=== PATIENT | female | born 1930 | race Caucasian/White ===

== ENCOUNTER → 2016-08-08 | Outpatient (CLI) | payer OTHER, BC ==
[~2016-08-08] MED LIST: ABILIFY2 MG PO; ADULT LOW DOSE81 M1 PO; ALPHA-LIPOIC A300 MG PO; ALTACE1.25 MG PO; ALTACE10 MG PO; ALTACE2.5 MG PO; AMOXICILLIN500 M1 PO; ASPIR-TRIN325 M1 PO; ASPIRIN EC325 MG PO; Ascorbic Acid,Ester- PO; CALCIUM + VIT1 EACH PO; CARDIZEM CD,CA120 MG PO; CARDIZEM CD360 MG PO; CARDIZEM30 MG PO; CARTIA XT120 MG PO; CEFUROXIME500 MG PO; CELEBREX200 MG PO; CELEXA20 MG PO; CENTRUM SILV1 TABLET PO; CENTRUM SILVER1 EAC3 PO; CINNAMON500 MG PO; CITRACAL + D C1 EACH PO; CITRACAL W/V1 TABLET PO; COLON HEALTH PO; CRESTOR5 MG PO; Cardizem CD,Cartia X PO; Centrum Silver,Certa PO; Citracal W/Vitamin D PO; DIAZEPAM5 MG PO; Ditropan PO; Dulcolax PO; Ecotrin PO; FEOSOL325 MG PO; FIBER GUMMIES2.5 GM PO; FIBER THERAPY0.52 GM PO; FLECTOR 1.3%1 PATC1 TD; FOLIC ACID0.8 MG PO; Folic Acid PO; Folvite PO; GLIPIZIDE5 MG; GLIPIZIDE5 MG PO; GLUCOPHAGE1000 MG PO; GLUCOPHAGE500 MG PO; GLUCOTROL10 MG PO; Glucophage PO; Glucotrol PO; HYDROCODON-ACE1 EAC7 PO; IBUPROFEN200 M1 PO; IRON325 M1 PO; JANUVIA100 MG; JANUVIA100 MG PO; Januvia PO; KLONOPIN0.25 MG PO; KLONOPIN0.5 M1 PO; KRILL OIL 3001 EACH PO; KlonoPIN PO; LO-DOSE ASPIRIN81 M1 PO; LOPRESSOR50 MG PO; LORCET 5-325 M1 EACH PO; LYRICA75 MG PO; Lopressor PO; MAALOX1 ML PO; MEGA BIOTIN10000 MCG PO; METFORMIN HCL500 MG PO; METOPROLOL SUCC25 MG PO; MIRALAX, GLYCOL1 PK1 PO; MOBIC15 MG PO; Maalox, Mylanta PO; Macrobid PO; Milk Of Magnesia,MOM PO; OXAYDO5 MG PO; OXYBUTYNIN CHLO10 MG PO; Oscal 500 w/Vitamin PO; Oyst-Cal D, Oscal W/ PO; PRAVACHOL40 MG PO; PRESERVISION T1 EACH PO; PREVACID30 MG PO; PREVAGEN PO; PROBIOTIC1 EAC1 PO; Prevacid PO; RAMIPRIL1.25 MG PO; RANITIDINE HCL300 M1 PO; ROBAXIN500 MG PO; SENOKOT S,PE1 TABLET PO; SYMMETREL100 M2 PO; Senokot S,Pericolace PO; TOVIAZ4 MG PO; TRAMADOL HCL50 MG PO; TYLENOL REGULA325 MG PO; Theragran PO; Tylenol Regular Stre PO; ULTRAM50 MG PO; VESICARE5 MG PO; VICODIN,LORT1 TABLET PO; VITAMIN D-32000 UNIT PO; VITAMIN D2000 INTUN PO; VITAMIN E400 UNIT PO; Vicodin,Lortab 5/500 PO; Vicodin,Norco 5/325 PO; celeBREX PO; celeXA PO
== END | disposition home or self-care (01) ==
DX: R13.10 Dysphagia, unspecified (principal)
CPT/HCPCS: 92611 GN; G8996 GN; G8997 GN; G8998 GN

== ENCOUNTER 2016-11-27 07:17 | Emergency (ER) | payer OTHER, BC ==
[~2016-11-27] VITALS: Ht 162.6 cm; Wt 81.4 kg
[2016-11-27 08:36] LABS: HEMATOCRIT 35.5 % (36.0-46.0); MCH 27.8 PG (29.0-34.0); MCHC 34.1 G/DL (30.0-36.0); MCV 81.6 FL (83-99); MEAN PLAT.VOLUME 8.7 uM^3 (9.5-12.4); PLATELET COUNT 277 K/uL (156-360); RBC DIS.WIDTH-CV 14.3 % (11.8-14.6); RBC DIS.WIDTH-SD 41.9 % (39-53); RED BLOOD COUNT 4.35 M/uL (3.80-5.20); WHITE BLOOD COUNT 7.3 K/uL (4.1-10.2)
[2016-11-27 08:46] LABS: CHLORIDE 93 mEq/L (99-109); POTASSIUM 4.2 mEq/L (3.7-5.4); SODIUM 128 mEq/L (136-147)
[2016-11-27 08:48] LABS: GLUCOSE 158 mg/dL (70-99)
[2016-11-27 08:49] LABS: ANION GAP 9 MEQ/L (2-14)
[2016-11-27 08:52] LABS: GFR ESTIMATE (CALCULATED) > 59 mL/min/
[2016-11-27 08:53] LABS: UREA NITROGEN (BUN) 13 mg/dL (9-23)
[2016-11-27 08:58] LABS: TROP-I INTERPRETATION NEGATIVE; TROPONIN-I < 0.01 ng/mL (0.0-0.30)
[2016-11-27 09:36] LABS: ADD MIUA? YES; BILIRUBIN NEGATIVE; BLOOD NEGATIVE; COLOR YELLOW ((YELLOW)); GLUCOSE (STRIP) NEGATIVE; KETONES NEGATIVE; LEUKOCYTES TRACE; NITRITE NEGATIVE; PROTEIN (STRIP) NEGATIVE; SPECIFIC GRAVITY 1.008 (1.000-1.030); UROBILINOGEN 0.2 MG/DL (0.2-1.0)
[2016-11-27 09:44] LABS: BACTERIA NONE SEEN /HPF; CALCIUM OXALATE CRYSTALS 1+ /HPF; EPITHELIAL CELLS RARE /HPF; MUCUS NONE SEEN /LPF; RED BLOOD CELLS 0-5 /HPF (0-5)
[2016-11-27 10:24] VITALS: BP 109/87
[2016-11-28] MEDS ORDERED: CITALOPRAM HBR20 MG PO (15:19)
[2016-11-28] MEDS ORDERED: GLUCOTROL10 MG PO (15:20)
[2016-11-28] MEDS ORDERED: ARMODAFINIL250 MG PO (15:20)
[2016-11-28] MEDS ORDERED: CENTRUM SILVER1 EAC3 PO (15:22)
[2016-11-28] MEDS ORDERED: PERCOCET 10/1 TABLET PO (15:24)
[2016-11-28] MEDS ORDERED: SYMBICORT60 INHALA1 IH (15:27)
== END 2016-11-27 10:26 | disposition home or self-care (01) ==
LOC: EME 07:17
PROVIDERS: Nurse Practitioner Family
DX: S51.811A Laceration without foreign body of right forearm, initial encounter (principal); W18.30XA Fall on same level, unspecified, initial encounter; Y92.009 Unspecified place in unspecified non-institutional (private) residence as the place of occurrence of the external cause; R29.6 Repeated falls; E11.9 Type 2 diabetes mellitus without complications; Z79.84 Long term (current) use of oral hypoglycemic drugs; I10 Essential (primary) hypertension
CPT/HCPCS: 70450; 71020; 80048; 81003; 84484; 85027; 93005; 99281; 99284; J7030

== ENCOUNTER 2016-11-28 11:24 | Observation (INO) | payer OTHER, BC ==
[~2016-11-28] VITALS: Ht 162.6 cm; Wt 81.3 kg
[2016-11-28 12:18] LABS: EOSINOPHIL (%) 1.1 % (0-5); EOSINOPHIL COUNT 0.1 K/uL (0-0.3); HEMATOCRIT 37.9 % (36.0-46.0); IMMATURE GRANULOCYTE (%) 0.6 % (0.0-0.7); INSTRUMENT ABS NEUTROPHIL CT 4.9 K/uL; LYMPHOCYTE COUNT 1.4 K/uL (1.0-2.8); MCH 27.5 PG (29.0-34.0); MCV 83.5 FL (83-99); MEAN PLAT.VOLUME 9.1 uM^3 (9.5-12.4); MONOCYTE COUNT 0.6 K/uL (0-0.8); NEUTROPHIL (%) 69.5 % (45-76); NEUTROPHIL COUNT 4.9 K/uL (1.8-6.4); PLATELET COUNT 317 K/uL (156-360); RBC DIS.WIDTH-SD 45.3 % (39-53); RED BLOOD COUNT 4.54 M/uL (3.80-5.20); WHITE BLOOD COUNT 7.1 K/uL (4.1-10.2)
[2016-11-28 12:35] LABS: CHLORIDE 100 mEq/L (99-109); POTASSIUM 4.6 mEq/L (3.7-5.4)
[2016-11-28 12:37] LABS: GLUCOSE 145 mg/dL (70-99)
[2016-11-28 12:38] LABS: ANION GAP 11 MEQ/L (2-14)
[2016-11-28 12:39] LABS: SODIUM 136 mEq/L (136-147); TOTAL BILIRUBIN 0.2 mg/dL (0.0-1.0)
[2016-11-28 12:40] LABS: ALKALINE PHOSPHATASE 74 IU/L (3-129)
[2016-11-28 12:41] LABS: GFR ESTIMATE (CALCULATED) > 59 mL/min/
[2016-11-28 12:42] LABS: UREA NITROGEN (BUN) 10 mg/dL (9-23)
[2016-11-28 12:44] LABS: TROP-I INTERPRETATION NEGATIVE; TROPONIN-I < 0.01 ng/mL (0.0-0.30)
[2016-11-28 13:15] LABS: D-DIMER ELISA 0.98 mg/L FEU (< 0.57)
[2016-11-28 14:53] LABS: ADD MIUA? NO; BILIRUBIN NEGATIVE; BLOOD NEGATIVE; COLOR YELLOW ((YELLOW)); GLUCOSE (STRIP) NEGATIVE; KETONES NEGATIVE; LEUKOCYTES NEGATIVE; NITRITE NEGATIVE; PROTEIN (STRIP) NEGATIVE; SPECIFIC GRAVITY 1.014 (1.000-1.030); UCUL ADDED? NO; UROBILINOGEN 0.2 MG/DL (0.2-1.0)
[2016-11-28] MEDS ORDERED: CITALOPRAM HBR20 MG PO (15:19)
[2016-11-28] MEDS ORDERED: GLUCOTROL10 MG PO (15:20)
[2016-11-28] MEDS ORDERED: ARMODAFINIL250 MG PO (15:20)
[2016-11-28] MEDS ORDERED: CENTRUM SILVER1 EAC3 PO (15:22)
[2016-11-28] MEDS ORDERED: PERCOCET 10/1 TABLET PO (15:24)
[2016-11-28] MEDS ORDERED: SYMBICORT60 INHALA1 IH (15:27)
[2016-11-28 17:33] VITALS: BP 177/78
[2016-11-28 19:30] VITALS: BP 161/75
[2016-11-28 19:41] LABS: TROP-I INTERPRETATION NEGATIVE; TROPONIN-I < 0.01 ng/mL (0.0-0.30)
[2016-11-28 23:49] VITALS: BP 143/82
[2016-11-29 01:13] LABS: TROP-I INTERPRETATION NEGATIVE; TROPONIN-I < 0.01 ng/mL (0.0-0.30)
[2016-11-29 04:19] VITALS: BP 156/67
[2016-11-29 06:23] LABS: ANION GAP 9 MEQ/L (2-14); CHLORIDE 103 MEQ/L (99-109); GFR ESTIMATE (CALCULATED) > 59 mL/min/; POTASSIUM 4.1 MEQ/L (3.7-5.4); SAMPLE HEMOLYSIS CHECK 0; SAMPLE ICTERIC CHECK 0; SAMPLE LIPEMIA CHECK 0; SODIUM 137 MEQ/L (136-147); UREA NITROGEN (BUN) 7 mg/dL (9-23)
[2016-11-29 06:31] LABS: GLUCOSE 105 mg/dL (70-99)
[2016-11-29 06:46] LABS: POINT-OF-CARE METER ID UU14162513; POINT-OF-CARE USER ID 609231305
[2016-11-29 08:00] VITALS: BP 159/84
[2016-11-29 11:05] VITALS: BP 132/73
== END 2016-11-29 14:37 | disposition home or self-care (01) ==
LOC: EME → EDBD 11:24 → EME 11:24 → EDOF 16:31 → 5WEST 16:31 → EDOF 16:31 → 5WEST 17:22
PROVIDERS: Emergency Medicine; Hospitalist; Internal Medicine
DX: R07.9 Chest pain, unspecified (principal); Z91.81 History of falling; R26.9 Unspecified abnormalities of gait and mobility; E11.9 Type 2 diabetes mellitus without complications; K21.9 Gastro-esophageal reflux disease without esophagitis; I10 Essential (primary) hypertension; E78.5 Hyperlipidemia, unspecified; R32 Unspecified urinary incontinence; F41.9 Anxiety disorder, unspecified; G47.30 Sleep apnea, unspecified; I45.10 Unspecified right bundle-branch block; Z96.611 Presence of right artificial shoulder joint; Z96.612 Presence of left artificial shoulder joint; Z96.653 Presence of artificial knee joint, bilateral; Z82.49 Family history of ischemic heart disease and other diseases of the circulatory system; Z83.3 Family history of diabetes mellitus; Z88.5 Allergy status to narcotic agent
CPT/HCPCS: 71020; 71275; 80048; 80053; 81003; 82948; 84484; 85025; 85379; 93005; 94640; 99202; 99281; 99283; G0378; G8978 GP CH; G8979 GP CH; G8980 GP CH; G8987 GO CH; G8988 GO CH; G8989 GO CH; J1650; J7030; J7040

== ENCOUNTER → 2017-06-12 | Outpatient (CLI) | payer OTHER, BC ==
[~2017-06-12] MED LIST changes: +ARMODAFINIL250 MG PO; +CITALOPRAM HBR20 MG PO; +PERCOCET 10/1 TABLET PO; +SYMBICORT60 INHALA1 IH
== END | disposition home or self-care (01) ==
DX: R13.13 Dysphagia, pharyngeal phase (principal); Z87.01 Personal history of pneumonia (recurrent); Z87.19 Personal history of other diseases of the digestive system
CPT/HCPCS: 92611 GN; G8996 GN CJ; G8997 GN CJ; G8998 GN CJ

== ENCOUNTER 2017-08-01 17:40 | Inpatient (IN) | payer OTHER, BC ==
[~2017-08-01] VITALS: Ht 162.6 cm; Wt 83.0 kg
[~2017-08-01 17:40] MED LIST changes: +METFORMIN HCL1000 MG PO; -METFORMIN HCL500 MG PO
[2017-08-01 18:29] LABS: HEMATOCRIT 33.2 % (36.0-46.0); HEMOGLOBIN 10.6 G/DL (11.9-15.5); MCH 25.8 PG (29.0-34.0); MCHC 31.9 G/DL (30.0-36.0); MCV 80.8 FL (83-99); PLATELET COUNT 300 K/uL (156-360); RBC DIS.WIDTH-CV 14.7 % (11.8-14.6); RBC DIS.WIDTH-SD 43.3 % (39-53); RED BLOOD COUNT 4.11 M/uL (3.80-5.20); WHITE BLOOD COUNT 7.9 K/uL (4.1-10.2)
[2017-08-01 18:38] LABS: CHLORIDE 104 mEq/L (99-109); POTASSIUM 4.2 mEq/L (3.7-5.4); SODIUM 140 mEq/L (136-147)
[2017-08-01 18:39] LABS: GLUCOSE 70 mg/dL (70-99)
[2017-08-01 18:43] LABS: CREATININE 0.9 mg/dL (0.6-1.3); GFR ESTIMATE (CALCULATED) > 59 mL/min/
[2017-08-01 18:44] LABS: UREA NITROGEN (BUN) 26 mg/dL (9-23)
[2017-08-01] MEDS ORDERED: IMODIUM A-D2 M2 PO (21:33)
[2017-08-01] MEDS ORDERED: PROTONIX40 MG PO (21:33)
[2017-08-01] MEDS ORDERED: ARICEPT10 MG PO (21:33)
[2017-08-01] MEDS ORDERED: AMOXICILLIN500 MG PO (21:33)
[2017-08-01] MEDS ORDERED: CLONAZEPAM1 MG PO (21:34)
[2017-08-01] MEDS ORDERED: VITAMIN D31000 UNIT PO (21:34)
[2017-08-01 23:12] VITALS: BP 143/66
[2017-08-02 03:37] VITALS: BP 134/63
[2017-08-02 06:07] LABS: HEMATOCRIT 31.5 % (36.0-46.0); MCH 25.4 PG (29.0-34.0); MCHC 31.7 G/DL (30.0-36.0); MCV 80.2 FL (83-99); PLATELET COUNT 292 K/uL (156-360); RBC DIS.WIDTH-CV 14.9 % (11.8-14.6); RBC DIS.WIDTH-SD 43.4 % (39-53); RED BLOOD COUNT 3.93 M/uL (3.80-5.20); WHITE BLOOD COUNT 6.4 K/uL (4.1-10.2)
[2017-08-02 06:29] LABS: HDL CHOLESTEROL 38 MG/DL (Desirable>=50); LDL CHOLESTEROL 66 mg/dL (Desirable<100); NON-HDL CHOLESTEROL 101 mg/dL (Desirable<160); TOTAL CHOLESTEROL 139 mg/dL (Desirable<200); TRIGLYCERIDES 175 MG/DL (Normal: <150)
[2017-08-02 06:55] LABS: APPEARANCE SL.HAZY ((CLEAR)); BILIRUBIN NEGATIVE; BLOOD NEGATIVE; COLOR YELLOW ((YELLOW)); GLUCOSE (STRIP) NEGATIVE; KETONES NEGATIVE; LEUKOCYTES LARGE; NITRITE NEGATIVE; PROTEIN (STRIP) NEGATIVE; UROBILINOGEN 0.2 MG/DL (0.2-1.0)
[2017-08-02 07:22] LABS: BACTERIA 2+ /HPF; EPITHELIAL CELLS RARE /HPF; MUCUS TRACE /LPF; RED BLOOD CELLS 0-5 /HPF (0-5); UCUL ADDED? YES; WHITE BLOOD CELLS TNTC /HPF (0-5)
[2017-08-02 07:30] VITALS: BP 177/79
[2017-08-02 08:39] LABS: FOLIC ACID (FOLATE) > 22.0 NG/ML (5.0-22.0)
[2017-08-02 11:33] VITALS: BP 176/75
[2017-08-02 15:35] VITALS: BP 137/69
[2017-08-02 19:39] VITALS: BP 156/70
[2017-08-03 00:56] VITALS: BP 144/75
[2017-08-03 05:33] LABS: BASOPHIL (%) 0.7 % (0-1); BASOPHIL COUNT 0.1 K/uL (0-0.1); EOSINOPHIL (%) 3.5 % (0-5); EOSINOPHIL COUNT 0.3 K/uL (0-0.3); HEMATOCRIT 33.8 % (36.0-46.0); HEMOGLOBIN 10.7 G/DL (11.9-15.5); IMMATURE GRANULOCYTE (%) 0.4 % (0.0-0.7); LYMPHOCYTE (%) 24.2 % (15-42); MCH 25.3 PG (29.0-34.0); MCHC 31.7 G/DL (30.0-36.0); MCV 79.9 FL (83-99); MONOCYTE (%) 9.8 % (3-12); MONOCYTE COUNT 0.8 K/uL (0-0.8); NEUTROPHIL (%) 61.4 % (45-76); NEUTROPHIL COUNT 5.1 K/uL (1.8-6.4); PLATELET COUNT 311 K/uL (156-360); RBC DIS.WIDTH-CV 14.7 % (11.8-14.6); RBC DIS.WIDTH-SD 42.7 % (39-53); RED BLOOD COUNT 4.23 M/uL (3.80-5.20); WHITE BLOOD COUNT 8.4 K/uL (4.1-10.2)
[2017-08-03 06:00] LABS: CHLORIDE 105 MEQ/L (99-109); CREATININE 0.8 MG/DL (0.6-1.3); GFR ESTIMATE (CALCULATED) > 59 mL/min/; GLUCOSE 192 mg/dL (70-99); POTASSIUM 3.8 MEQ/L (3.7-5.4); SODIUM 142 MEQ/L (136-147); UREA NITROGEN (BUN) 14 mg/dL (9-23)
[2017-08-03 07:24] VITALS: BP 146/78
[2017-08-03 12:26] VITALS: BP 148/73
[2017-08-03 23:27] VITALS: BP 147/74
[2017-08-04 07:45] VITALS: BP 135/74
[2017-08-04 12:01] VITALS: BP 120/60
[2017-08-04 15:25] VITALS: BP 136/83
[2017-08-04 20:00] VITALS: BP 135/63
[2017-08-05 00:26] VITALS: BP 147/66
[2017-08-05 12:41] VITALS: BP 131/75
[2017-08-05] MEDS ORDERED: TYLENOL REGULA325 MG PO (15:29)
[2017-08-05] MEDS ORDERED: COLACE100 MG PO (15:30)
[2017-08-05] MEDS ORDERED: HEPARIN SO5000 UNIT3 SC (15:31)
[2017-08-05] MEDS ORDERED: NOVOLOG 10100 UNITS/ SC (15:45)
[2017-08-05] MEDS ORDERED: CELEXA20 MG PO (15:46)
[2017-08-05] MEDS ORDERED: APRESOLINE20 MG/ML IV (15:47)
== END 2017-08-05 14:00 | DRG 92 ==
LOC: EME 17:40 → EDOF 21:30 → ENRESERV 21:39 → 5WEST 23:04
PROVIDERS: Hospitalist; Internal Medicine
DX: R26.0 Ataxic gait (principal); R47.81 Slurred speech; H53.2 Diplopia; N39.0 Urinary tract infection, site not specified; D64.9 Anemia, unspecified; I10 Essential (primary) hypertension; E78.00 Pure hypercholesterolemia, unspecified; E78.5 Hyperlipidemia, unspecified; K21.9 Gastro-esophageal reflux disease without esophagitis; G43.909 Migraine, unspecified, not intractable, without status migrainosus; E11.9 Type 2 diabetes mellitus without complications; G47.33 Obstructive sleep apnea (adult) (pediatric); F41.9 Anxiety disorder, unspecified; Z96.611 Presence of right artificial shoulder joint; Z96.653 Presence of artificial knee joint, bilateral; Z96.612 Presence of left artificial shoulder joint; Z85.828 Personal history of other malignant neoplasm of skin; Z79.82 Long term (current) use of aspirin; Z91.81 History of falling
CPT/HCPCS: 70450; 70551; 71046; 80048; 80061; 81003; 82607; 82746; 82948; 83036; 84238 90; 84443; 85025; 85027; 87077; 87086; 87186; 93005; 93306; 93880; 95819; 97530 GO; 97530 GP; 99281; 99285; G0378; G8978 GP CJ; G8979 GP CI; J0696; J1644; J1815

== ENCOUNTER 2017-08-05 12:52 | Inpatient (IN) | payer OTHER, BC ==
[~2017-08-05] VITALS: Ht 154.9 cm; Wt 136.7 kg
[~2017-08-05 12:52] MED LIST changes: +AMOXICILLIN500 MG PO; +ARICEPT10 MG PO; +CLONAZEPAM1 MG PO; +IMODIUM A-D2 M2 PO; +PROTONIX40 MG PO; +VITAMIN D31000 UNIT PO
[2017-08-05 14:05] VITALS: BP 132/58
[2017-08-05] MEDS ORDERED: TYLENOL REGULA325 MG PO (15:29)
[2017-08-05] MEDS ORDERED: COLACE100 MG PO (15:30)
[2017-08-05] MEDS ORDERED: HEPARIN SO5000 UNIT3 SC (15:31)
[2017-08-05] MEDS ORDERED: NOVOLOG 10100 UNITS/ SC (15:45)
[2017-08-05] MEDS ORDERED: CELEXA20 MG PO (15:46)
[2017-08-05] MEDS ORDERED: APRESOLINE20 MG/ML IV (15:47)
[2017-08-05 16:06] VITALS: BP 127/70
[2017-08-06 00:34] VITALS: BP 142/65
[2017-08-06 06:08] VITALS: BP 158/70
[2017-08-06 08:05] LABS: HEMOGLOBIN 10.3 G/DL (11.9-15.5); MCH 25.5 PG (29.0-34.0); MCHC 31.2 G/DL (30.0-36.0); MCV 81.7 FL (83-99); PLATELET COUNT 305 K/uL (156-360); RBC DIS.WIDTH-CV 15.2 % (11.8-14.6); RBC DIS.WIDTH-SD 43.6 % (39-53); RED BLOOD COUNT 4.04 M/uL (3.80-5.20); WHITE BLOOD COUNT 7.6 K/uL (4.1-10.2)
[2017-08-06 08:33] LABS: ALBUMIN 3.6 G/DL (3.2-4.8); ALKALINE PHOSPHATASE 80 IU/L (3-129); ALT (GPT) 26 IU/L (3-49); AST (GOT) 21 IU/L (2-34); CHLORIDE 105 MEQ/L (99-109); CREATININE 0.7 MG/DL (0.6-1.3); GFR ESTIMATE (CALCULATED) > 59 mL/min/; GLUCOSE 160 mg/dL (70-99); POTASSIUM 3.7 MEQ/L (3.7-5.4); SODIUM 139 MEQ/L (136-147); TOTAL BILIRUBIN 0.5 MG/DL (0.0-1.0); UREA NITROGEN (BUN) 17 mg/dL (9-23)
[2017-08-06 15:32] VITALS: BP 141/60
[2017-08-07] VITALS: BP 135/75
[2017-08-07 06:27] VITALS: BP 141/65
[2017-08-07 15:37] VITALS: BP 127/99
[2017-08-08 05:13] VITALS: BP 125/61
[2017-08-08 07:03] VITALS: BP 148/70
[2017-08-08 15:31] VITALS: BP 109/57
[2017-08-09 06:04] VITALS: BP 142/65
[2017-08-09 13:50] VITALS: BP 141/64
[2017-08-09 15:40] VITALS: BP 130/62
[2017-08-10 05:38] VITALS: BP 133/61
[2017-08-10 15:20] VITALS: BP 101/51
[2017-08-10 16:57] VITALS: BP 110/50
[2017-08-11 05:48] VITALS: BP 124/61
[2017-08-11 16:11] VITALS: BP 120/62
[2017-08-11 17:09] LABS: C DIFF TOXIN NEGATIVE (NEGATIVE)
[2017-08-12 05:51] VITALS: BP 141/66
[2017-08-12 15:08] VITALS: BP 122/59
[2017-08-13 05:35] VITALS: BP 129/60
[2017-08-13 15:09] VITALS: BP 106/59
[2017-08-14 05:53] VITALS: BP 132/62
[2017-08-14 06:53] VITALS: BP 132/60
[2017-08-14 16:29] VITALS: BP 129/59
[2017-08-15 04:26] LABS: BASOPHIL (%) 0.8 % (0-1); BASOPHIL COUNT 0.1 K/uL (0-0.1); EOSINOPHIL (%) 5.9 % (0-5); EOSINOPHIL COUNT 0.4 K/uL (0-0.3); HEMATOCRIT 34.6 % (36.0-46.0); IMMATURE GRANULOCYTE (%) 0.4 % (0.0-0.7); LYMPHOCYTE (%) 31.6 % (15-42); LYMPHOCYTE COUNT 2.3 K/uL (1.0-2.8); MCH 25.9 PG (29.0-34.0); MCHC 31.8 G/DL (30.0-36.0); MCV 81.6 FL (83-99); MONOCYTE (%) 9.4 % (3-12); MONOCYTE COUNT 0.7 K/uL (0-0.8); NEUTROPHIL (%) 51.9 % (45-76); NEUTROPHIL COUNT 3.8 K/uL (1.8-6.4); PLATELET COUNT 254 K/uL (156-360); RBC DIS.WIDTH-CV 16.2 % (11.8-14.6); RBC DIS.WIDTH-SD 47.6 % (39-53); RED BLOOD COUNT 4.24 M/uL (3.80-5.20); WHITE BLOOD COUNT 7.3 K/uL (4.1-10.2)
[2017-08-15 04:34] LABS: ALBUMIN 3.7 g/dL (3.2-4.8); CHLORIDE 106 mEq/L (99-109); POTASSIUM 4.5 mEq/L (3.7-5.4); SODIUM 140 mEq/L (136-147)
[2017-08-15 04:37] LABS: GLUCOSE 117 mg/dL (70-99); TOTAL PROTEIN 6.3 g/dL (6.4-8.3)
[2017-08-15 04:39] LABS: TOTAL BILIRUBIN 0.4 mg/dL (0.0-1.0)
[2017-08-15 04:40] LABS: ALKALINE PHOSPHATASE 79 IU/L (3-129); CREATININE 0.8 mg/dL (0.6-1.3); GFR ESTIMATE (CALCULATED) > 59 mL/min/
[2017-08-15 04:41] LABS: UREA NITROGEN (BUN) 23 mg/dL (9-23)
[2017-08-15 04:42] LABS: AST (GOT) 23 IU/L (2-34)
[2017-08-15 04:43] LABS: ALT (GPT) 23 IU/L (3-49)
[2017-08-15 05:45] VITALS: BP 145/65
[2017-08-15 15:02] VITALS: BP 120/59
[2017-08-16 05:04] VITALS: BP 123/57
[2017-08-16 12:31] LABS: GLUCOSE 63 mg/dL (70-99)
[2017-08-16 15:06] VITALS: BP 119/58
[2017-08-17 04:47] VITALS: BP 122/61
[2017-08-17 16:02] VITALS: BP 131/59
[2017-08-18 05:43] VITALS: BP 119/59
[2017-08-18 16:11] VITALS: BP 115/56
[2017-08-19 08:03] LABS: HEMATOCRIT 36.8 % (36.0-46.0); HEMOGLOBIN 11.4 G/DL (11.9-15.5); MCH 25.9 PG (29.0-34.0); MCV 83.6 FL (83-99); PLATELET COUNT 305 K/uL (156-360); RBC DIS.WIDTH-CV 15.9 % (11.8-14.6); WHITE BLOOD COUNT 6.3 K/uL (4.1-10.2)
[2017-08-19 08:26] LABS: CHLORIDE 103 MEQ/L (99-109); CREATININE 0.9 MG/DL (0.6-1.3); GFR ESTIMATE (CALCULATED) > 59 mL/min/; POTASSIUM 4.7 MEQ/L (3.7-5.4); SODIUM 140 MEQ/L (136-147); UREA NITROGEN (BUN) 19 mg/dL (9-23)
[2017-08-19 08:29] LABS: GLUCOSE 139 mg/dL (70-99)
[2017-08-19 15:27] VITALS: BP 127/61
[2017-08-20 05:17] VITALS: BP 137/61
[2017-08-20 11:50] LABS: ANTI-SMOOTH MUSCLE (Actin)+ <20 U (<20)
[2017-08-20] MEDS ORDERED: CARBIDOPA/LEVO1 EACH PO (12:03)
[2017-08-20] MEDS ORDERED: MESTINON60 MG PO (12:03)
[2017-08-20 19:07] LABS: ACETYLCHOLINE RECP BIND ABY+ <0.30 nmol/L (<=0.30)
== END 2017-08-20 14:05 | disposition home health service (06) | DRG 556 ==
LOC: 3WEST 12:52 → ENPENDDIS 08-20 → 3WEST 08-20 14:05
PROVIDERS: Physical Medicine & Rehabilitation Pain Medicine; Psychiatry & Neurology Neurology; Specialist
PROC: F07M0ZZ Range of Motion and Joint Mobility Treatment of Musculoskeletal System - Whole Body (ICD-10-PCS; principal; 2017-08-05)
DX: R26.2 Difficulty in walking, not elsewhere classified (principal); R27.0 Ataxia, unspecified; R47.81 Slurred speech; R29.6 Repeated falls; E11.649 Type 2 diabetes mellitus with hypoglycemia without coma; R19.7 Diarrhea, unspecified; I10 Essential (primary) hypertension; D64.9 Anemia, unspecified; E78.00 Pure hypercholesterolemia, unspecified; F41.9 Anxiety disorder, unspecified; G47.30 Sleep apnea, unspecified; E11.42 Type 2 diabetes mellitus with diabetic polyneuropathy; G70.00 Myasthenia gravis without (acute) exacerbation; G89.29 Other chronic pain; M25.511 Pain in right shoulder; M54.2 Cervicalgia; I45.10 Unspecified right bundle-branch block; K21.9 Gastro-esophageal reflux disease without esophagitis; M25.78 Osteophyte, vertebrae; R13.10 Dysphagia, unspecified; R32 Unspecified urinary incontinence; M50.30 Other cervical disc degeneration, unspecified cervical region; E66.9 Obesity, unspecified; Z96.611 Presence of right artificial shoulder joint; Z96.652 Presence of left artificial knee joint; Z91.81 History of falling; Z68.43 Body mass index [BMI] 50.0-59.9, adult
CPT/HCPCS: 70491; 80048; 80053; 82947; 82948; 83516 90; 84238 90; 85025; 85027; 87493; 92523 GN; 92526 GN; 92610 GN; 94640; 94640 76; 94799; 97110 GO; 97530 GP; J1644; J1815

== ENCOUNTER 2017-10-08 14:38 | Inpatient (IN) | payer OTHER, BC ==
[~2017-10-08] VITALS: Ht 162.6 cm; Wt 78.4 kg
[~2017-10-08 14:38] MED LIST changes: +APRESOLINE20 MG/ML IV; +CARBIDOPA/LEVO1 EACH PO; +COLACE100 MG PO; +HEPARIN SO5000 UNIT3 SC; +MESTINON60 MG PO; +NOVOLOG 10100 UNITS/ SC
[2017-10-08 16:40] LABS: BASOPHIL (%) 0.3 % (0-1); EOSINOPHIL (%) 1.3 % (0-5); EOSINOPHIL COUNT 0.2 K/uL (0-0.3); HEMOGLOBIN 12.3 G/DL (11.9-15.5); IMMATURE GRANULOCYTE (%) 0.3 % (0.0-0.7); LYMPHOCYTE (%) 8.5 % (15-42); MCH 25.6 PG (29.0-34.0); MCHC 32.4 G/DL (30.0-36.0); MONOCYTE (%) 6.8 % (3-12); MONOCYTE COUNT 0.8 K/uL (0-0.8); NEUTROPHIL (%) 82.8 % (45-76); NEUTROPHIL COUNT 10.1 K/uL (1.8-6.4); PLATELET COUNT 270 K/uL (156-360); RBC DIS.WIDTH-CV 15.5 % (11.8-14.6); RBC DIS.WIDTH-SD 44.2 % (39-53); RED BLOOD COUNT 4.81 M/uL (3.80-5.20); WHITE BLOOD COUNT 12.2 K/uL (4.1-10.2)
[2017-10-08 16:52] LABS: ALBUMIN 4.2 g/dL (3.2-4.8)
[2017-10-08 16:53] LABS: CHLORIDE 102 mEq/L (99-109); POTASSIUM 4.4 mEq/L (3.7-5.4); SODIUM 138 mEq/L (136-147)
[2017-10-08 16:55] LABS: GLUCOSE 159 mg/dL (70-99); TOTAL PROTEIN 7.4 g/dL (6.4-8.3)
[2017-10-08 16:57] LABS: TOTAL BILIRUBIN 0.3 mg/dL (0.0-1.0)
[2017-10-08 16:58] LABS: ALKALINE PHOSPHATASE 98 IU/L (3-129)
[2017-10-08 16:59] LABS: CREATININE 0.9 mg/dL (0.6-1.3); GFR ESTIMATE (CALCULATED) > 59 mL/min/
[2017-10-08 17:00] LABS: AST (GOT) 13 IU/L (2-34); UREA NITROGEN (BUN) 24 mg/dL (9-23)
[2017-10-08 17:01] LABS: ALT (GPT) 13 IU/L (3-49)
[2017-10-08 17:02] LABS: LIPASE 38 U/L (1.0-51.0); TROP-I INTERPRETATION NEGATIVE; TROPONIN-I < 0.01 ng/mL (0.0-0.30)
[2017-10-08 18:04] LABS: APPEARANCE CLEAR ((CLEAR)); BILIRUBIN NEGATIVE; BLOOD NEGATIVE; COLOR STRAW ((YELLOW)); GLUCOSE (STRIP) NEGATIVE; KETONES NEGATIVE; LEUKOCYTES NEGATIVE; NITRITE NEGATIVE; PROTEIN (STRIP) 30; SPECIFIC GRAVITY 1.014 (1.000-1.030); UCUL ADDED? NO; UROBILINOGEN 0.2 MG/DL (0.2-1.0)
[2017-10-08] MEDS ORDERED: SYMBICORT60 INHALA1 IH (18:04)
[2017-10-08] MEDS ORDERED: IMODIUM A-D2 M2 PO (18:04)
[2017-10-08] MEDS ORDERED: GLIPIZIDE5 MG PO (18:05)
[2017-10-08 19:50] VITALS: BP 123/75
[2017-10-08 22:41] LABS: TROP-I INTERPRETATION NEGATIVE; TROPONIN-I 0.01 ng/mL (0.0-0.30)
[2017-10-09] VITALS (7 sets, daily range): BP systolic 126–168; BP diastolic 62–86
[2017-10-09 06:32] LABS: HEMOGLOBIN 10.9 G/DL (11.9-15.5); MCH 26.1 PG (29.0-34.0); MCV 78.9 FL (83-99); PLATELET COUNT 234 K/uL (156-360); RBC DIS.WIDTH-CV 15.9 % (11.8-14.6); RBC DIS.WIDTH-SD 44.6 % (39-53); RED BLOOD COUNT 4.18 M/uL (3.80-5.20); WHITE BLOOD COUNT 9.5 K/uL (4.1-10.2)
[2017-10-09 06:53] LABS: CHLORIDE 104 MEQ/L (99-109); CREATININE 0.8 MG/DL (0.6-1.3); GFR ESTIMATE (CALCULATED) > 59 mL/min/; POTASSIUM 3.7 MEQ/L (3.7-5.4); SODIUM 140 MEQ/L (136-147); UREA NITROGEN (BUN) 19 mg/dL (9-23)
[2017-10-09 06:55] LABS: GLUCOSE 105 mg/dL (70-99)
[2017-10-10 07:59] VITALS: BP 148/88
[2017-10-10 11:59] VITALS: BP 153/80
[2017-10-10 19:24] VITALS: BP 159/81
[2017-10-10 23:31] VITALS: BP 161/77
[2017-10-11 03:49] VITALS: BP 168/81
[2017-10-11 07:40] VITALS: BP 137/67
== END 2017-10-11 12:18 | DRG 192 ==
LOC: EME 14:38 → EDOF 18:17 → 5SOUTH 18:17 → ENRESERV 18:19 → 5SOUTH 19:35
PROVIDERS: Emergency Medicine; Internal Medicine; Internal Medicine Pulmonary Disease
PROC: 5A09357 Assistance with Respiratory Ventilation, Less than 24 Consecutive Hours, Continuous Positive Airway Pressure (ICD-10-PCS; principal; 2017-10-09)
DX: J44.1 Chronic obstructive pulmonary disease with (acute) exacerbation (principal); E11.9 Type 2 diabetes mellitus without complications; E78.5 Hyperlipidemia, unspecified; G47.33 Obstructive sleep apnea (adult) (pediatric); G47.61 Periodic limb movement disorder; I10 Essential (primary) hypertension; K21.9 Gastro-esophageal reflux disease without esophagitis; R47.02 Dysphasia; F32.9 Major depressive disorder, single episode, unspecified; F41.9 Anxiety disorder, unspecified; G43.909 Migraine, unspecified, not intractable, without status migrainosus; I27.20 Pulmonary hypertension, unspecified; Z96.611 Presence of right artificial shoulder joint; Z96.653 Presence of artificial knee joint, bilateral; Z79.82 Long term (current) use of aspirin; Z85.828 Personal history of other malignant neoplasm of skin; Z88.5 Allergy status to narcotic agent
CPT/HCPCS: 71045; 71275; 80048; 80053; 81003; 82948; 83605; 83690; 83880; 84484; 85025; 85027; 85379; 87040; 87502; 92610 GN; 93005; 94640; 94640 76; 94660; 94799; 99281; 99285; J0456; J0696; J1644; J1815; J1885; J1940

== ENCOUNTER 2017-10-11 10:38 | Inpatient (IN) | payer OTHER, BC ==
[~2017-10-11] VITALS: Ht 162.6 cm; Wt 77.8 kg
[2017-10-11 12:20] VITALS: BP 166/83
[2017-10-11 16:09] VITALS: BP 151/81
[2017-10-12 04:42] LABS: HEMATOCRIT 36.3 % (36.0-46.0); HEMOGLOBIN 11.8 G/DL (11.9-15.5); MCH 25.8 PG (29.0-34.0); MCHC 32.5 G/DL (30.0-36.0); MCV 79.3 FL (83-99); PLATELET COUNT 257 K/uL (156-360); RBC DIS.WIDTH-CV 15.3 % (11.8-14.6); RBC DIS.WIDTH-SD 43.8 % (39-53); RED BLOOD COUNT 4.58 M/uL (3.80-5.20); WHITE BLOOD COUNT 6.4 K/uL (4.1-10.2)
[2017-10-12 04:47] VITALS: BP 141/69
[2017-10-12 05:02] LABS: ALBUMIN 3.7 g/dL (3.2-4.8); CHLORIDE 106 mEq/L (99-109); POTASSIUM 4.2 mEq/L (3.7-5.4); SODIUM 141 mEq/L (136-147)
[2017-10-12 05:05] LABS: GLUCOSE 138 mg/dL (70-99); TOTAL PROTEIN 6.3 g/dL (6.4-8.3)
[2017-10-12 05:07] LABS: TOTAL BILIRUBIN 0.3 mg/dL (0.0-1.0)
[2017-10-12 05:08] LABS: ALKALINE PHOSPHATASE 89 IU/L (3-129); CREATININE 0.8 mg/dL (0.6-1.3); GFR ESTIMATE (CALCULATED) > 59 mL/min/
[2017-10-12 05:09] LABS: UREA NITROGEN (BUN) 22 mg/dL (9-23)
[2017-10-12 05:10] LABS: AST (GOT) 18 IU/L (2-34)
[2017-10-12 05:11] LABS: ALT (GPT) 16 IU/L (3-49)
[2017-10-12 15:31] VITALS: BP 134/70
[2017-10-12 21:39] VITALS: BP 146/77
[2017-10-13 05:18] VITALS: BP 139/67
[2017-10-13 15:36] VITALS: BP 129/63
[2017-10-14 05:08] VITALS: BP 132/74
[2017-10-14 15:27] VITALS: BP 135/70
[2017-10-15 05:34] VITALS: BP 144/76
[2017-10-15 15:30] VITALS: BP 127/69
[2017-10-16 05:04] VITALS: BP 139/73
[2017-10-16 15:53] VITALS: BP 135/61
[2017-10-17 05:15] VITALS: BP 139/85
[2017-10-17 15:20] VITALS: BP 130/66
[2017-10-18 04:15] VITALS: BP 171/87
[2017-10-18 05:30] VITALS: BP 152/82
[2017-10-18 15:34] VITALS: BP 128/71
[2017-10-19 04:08] VITALS: BP 133/80
[2017-10-19 15:13] VITALS: BP 109/59
[2017-10-20 05:01] VITALS: BP 174/79
[2017-10-20 14:45] LABS: MCH 24.8 PG (29.0-34.0); MCHC 30.8 G/DL (30.0-36.0); MCV 80.7 FL (83-99); PLATELET COUNT 329 K/uL (156-360); RBC DIS.WIDTH-CV 15.5 % (11.8-14.6); RBC DIS.WIDTH-SD 45.1 % (39-53); RED BLOOD COUNT 4.83 M/uL (3.80-5.20); WHITE BLOOD COUNT 7.5 K/uL (4.1-10.2)
[2017-10-20 15:00] LABS: TROP-I INTERPRETATION NEGATIVE; TROPONIN-I < 0.01 ng/mL (0.0-0.30)
[2017-10-20 15:18] LABS: ALBUMIN 3.7 G/DL (3.2-4.8); ALKALINE PHOSPHATASE 62 IU/L (3-129); ALT (GPT) 27 IU/L (3-49); AST (GOT) 20 IU/L (2-34); CHLORIDE 103 MEQ/L (99-109); CREATININE 0.9 MG/DL (0.6-1.3); GFR ESTIMATE (CALCULATED) > 59 mL/min/; GLUCOSE 103 mg/dL (70-99); POTASSIUM 4.3 MEQ/L (3.7-5.4); SODIUM 138 MEQ/L (136-147); TOTAL BILIRUBIN 0.2 MG/DL (0.0-1.0); TOTAL PROTEIN 6.8 G/DL (6.4-8.3); UREA NITROGEN (BUN) 24 mg/dL (9-23)
[2017-10-20 15:23] VITALS: BP 144/65
[2017-10-21 05:32] VITALS: BP 136/78
== END 2017-10-21 14:00 | DRG 945 ==
LOC: 3WEST 10:38 → EDPENDDISDT 10-21 → 3WEST 10-21 14:00 → ENPENDDIS 10-22
PROVIDERS: Physical Medicine & Rehabilitation Pain Medicine; Psychiatry & Neurology Neurology
PROC: F07M0ZZ Range of Motion and Joint Mobility Treatment of Musculoskeletal System - Whole Body (ICD-10-PCS; principal; 2017-10-11)
DX: R53.1 Weakness (principal); R09.02 Hypoxemia; J81.1 Chronic pulmonary edema; F33.9 Major depressive disorder, recurrent, unspecified; D64.9 Anemia, unspecified; E11.9 Type 2 diabetes mellitus without complications; E78.5 Hyperlipidemia, unspecified; F41.9 Anxiety disorder, unspecified; G47.30 Sleep apnea, unspecified; H04.123 Dry eye syndrome of bilateral lacrimal glands; H35.30 Unspecified macular degeneration; H91.90 Unspecified hearing loss, unspecified ear; I45.10 Unspecified right bundle-branch block; I11.9 Hypertensive heart disease without heart failure; K21.9 Gastro-esophageal reflux disease without esophagitis; R32 Unspecified urinary incontinence; Z96.652 Presence of left artificial knee joint; M48.00 Spinal stenosis, site unspecified; R27.0 Ataxia, unspecified; R45.87 Impulsiveness; J43.9 Emphysema, unspecified; Z60.2 Problems related to living alone; Z79.82 Long term (current) use of aspirin; Z90.710 Acquired absence of both cervix and uterus; Z91.81 History of falling; Z88.5 Allergy status to narcotic agent; Z79.84 Long term (current) use of oral hypoglycemic drugs; Z82.49 Family history of ischemic heart disease and other diseases of the circulatory system; Z83.3 Family history of diabetes mellitus
CPT/HCPCS: 80053; 82948; 84484; 85027; 97110 GO; 97530 GP

== ENCOUNTER 2017-10-31 05:38 | Emergency (ER) | payer OTHER, BC ==
[~2017-10-31] VITALS: Ht 162.6 cm; Wt 77.9 kg
[2017-10-31 10:25] VITALS: BP 137/84
== END 2017-10-31 10:29 ==
LOC: EME → EDBD 05:38 → EME 10:29
PROC: 0HQ0XZZ Repair Scalp Skin, External Approach (ICD-10-PCS; principal; 2017-10-31)
DX: S09.90XA Unspecified injury of head, initial encounter (principal); S01.01XA Laceration without foreign body of scalp, initial encounter; M54.2 Cervicalgia; S30.810A Abrasion of lower back and pelvis, initial encounter; W18.30XA Fall on same level, unspecified, initial encounter; I10 Essential (primary) hypertension; E11.9 Type 2 diabetes mellitus without complications; Z79.84 Long term (current) use of oral hypoglycemic drugs; Z79.82 Long term (current) use of aspirin; Z96.653 Presence of artificial knee joint, bilateral; Z96.611 Presence of right artificial shoulder joint; Z85.828 Personal history of other malignant neoplasm of skin
CPT/HCPCS: 70450; 72125; 99281; 99284